=== PATIENT | male | born 1960 | race Caucasian/White ===

== ENCOUNTER 2019-11-22 15:32 | Inpatient (IN) | payer MEDICAID, MEDICARE ==
[~2019-11-22] VITALS: Ht 185.4 cm; Wt 80.5 kg
[~2019-11-22 15:32] MED LIST: CEFAZOLIN 1,000 MG ONE; CYCL-259 PO; DULO20CA45 PO; FOLI-17 PO; ONDANSETRON 2MG/ML, 2ML ONE; PHENYLEPHRINE 10 MG/ML ONE; PROPOFOL 10 MG/ML, 20ML ONE; ROCURONIUM 10 MG/ML,10ML ONE; SUCCINYLCHOLINE 20 MG/ML, 10ML ONE; THIA100T10 PO; TRAM50TA2 PO; TRAZ50TA66 PO; VASOPRESSIN 20 UNIT/ML, 1ML ONE
--- NOTE | 2019-11-22 15:58 | NUR ---
THIS IS A 59 YO MALE CARLOS REMSA FROM HOME WHERE PT WAS FOUND DOWN FOR UNK AMOUNT OF TIME. PT HAS LEFT PERIORIBTAL BRUSING/SWELLING. VARIOUS BRUISES ON BILAT ARMS IN DIFFERENT STATES OF HEALING. BRUSING ACROSS BACK AND RIGHT LATERAL SIDE. CAP REFILL APPROX 3-4 SECONDS ON TOES. PT HYPOTHERMIC UPON ARRIVAL. BEAR HUGGER INITIATED. PT ON CONT BP, CARDIAC AND SPO2 MONITORS. C-COLLAR IN PLACE FROM EMS D/T PT RESPONDING TO PAIN UPON PALP OF SPINE. PT AO X SELF AND SITUATION AND ANSWERING MOST QUESTIONS APPROPRIATELY. PUPILS 4MM, EQUAL AND REACTIVE, SLIGHTLY SLUGGISH. DRIED BLOOD NOTED IN HAIR ON RIGHT TOP OF SCALP. PT REPORTS HE FELL DOWN THE NEIGHBORS STAIRS. UNK EXACTLY WHEN. Addendum: 11/22/19 at 1604 by ALICIA THIS IS A 59 YO MALE CARLOS [place] FROM HOME WHERE PT WAS FOUND DOWN FOR UNK AMOUNT OF TIME. PT HAS LEFT PERIORIBTAL BRUSING/SWELLING. VARIOUS BRUISES ON BILAT ARMS IN DIFFERENT STATES OF HEALING. BRUSING ACROSS BACK AND RIGHT LATERAL SIDE. CAP REFILL APPROX 3-4 SECONDS ON TOES. PT HYPOTHERMIC UPON ARRIVAL. BEAR HUGGER INITIATED. PT ON CONT BP, CARDIAC AND SPO2 MONITORS. C-COLLAR IN PLACE FROM EMS D/T PT RESPONDING TO PAIN UPON PALP OF SPINE. PT AO X SELF AND SITUATION AND ANSWERING MOST QUESTIONS APPROPRIATELY. PUPILS 4MM, EQUAL AND REACTIVE, SLIGHTLY SLUGGISH. DRIED BLOOD NOTED IN HAIR ON RIGHT TOP OF SCALP. PT REPORTS HE FELL DOWN THE NEIGHBORS STAIRS. UNK EXACTLY WHEN.
[2019-11-22] MEDS ORDERED: SODIUM CHLORIDE 0.9% 1,000ML IVBOLUS ONE (16:00)
[2019-11-22] MEDS ORDERED: SODIUM CHLORIDE FLUSH 10ML SYR IVF ONE (16:00)
[2019-11-22] MEDS ORDERED: NEOSPORIN OINT. PKT 1 PACKET ONE ×2 (16:20)
[2019-11-22 16:27] LABS: ALANINE AMINOTRANSFERASE 647 U/L (12-78); ALBUMIN 3.7 g/dL (3.4-5.0); ANION GAP 25 mmol/L (5-15); CALCIUM 8.1 mg/dL (8.5-10.1); CHLORIDE 105 mmol/L (98-107); CREATININE 1.66 mg/dL (0.7-1.3)
[2019-11-22] MEDS ORDERED: ONDANSETRON 2MG/ML, 2ML ONE (16:33)
[2019-11-22 16:42] LABS: MD YES; MEAN CORPUSCULAR HEMOGLOBIN 23.9 pg (27.5-34.5); MEAN CORPUSCULAR HGB CONC 30.2 g/dL (33.2-36.2); MEAN PLATELET VOLUME 8.2 fL (7.4-10.4); PLATELET COUNT 71 x10^3/uL (130-400); RED BLOOD COUNT 4.87 x10^6/uL (4.38-5.82); RED CELL DISTRIBUTION WIDTH 19.9 % (9.4-14.8)
[2019-11-22 16:47] LABS: ANISOCYTOSIS 1+; BAND#(MANUAL) 0.35 x10^3/uL; BANDS%(MANUAL) 3 % (0-7); LYMPH#(MANUAL) 0.92 x10^3/uL (1-3.4); LYMPHS% (MANUAL) 8 % (22-44); MONOS#(MANUAL) 0.92 x10^3/uL (0.3-2.7); MONOS% (MANUAL) 8 % (2-9); SEG#(MANUAL) 9.32 x10^3/uL (1.8-6.8); SEGS% (MANUAL) 81 % (42-75)
--- NOTE | 2019-11-22 16:47 | NUR ---
PT TO CT SCAN VIA [facility] AT THIS TIME.
[2019-11-22 16:48] LABS: HYPOCHROMIA 1+; MICROCYTOSIS 1+; OVALOCYTES 1+
[2019-11-22 16:50] LABS: POLYCHROMASIA 1+
[2019-11-22 16:51] LABS: ALKALINE PHOSPHATASE 96 U/L (45-117); TARGET CELLS 1+
[2019-11-22 16:53] LABS: BILIRUBIN,TOTAL 3.7 mg/dL (0.2-1.0)
[2019-11-22 16:55] LABS: PAPPENHEIMER BODIES 1+
[2019-11-22] MEDS ORDERED: ONDANSETRON 2MG/ML, 2ML IVPush ONE (17:00)
[2019-11-22 17:02] LABS: <PLATELET ESTIMATE> DECREASED; <PLT MORPHOLOGY> NORMAL PLT MORPH
[2019-11-22 17:17] LABS: INTERNATIONAL NORMALIZED RATIO 1.09 (0.93-1.1); PROTHROMBIN TIME 11.6 Seconds (9.6-11.5)
[2019-11-22] MEDS ORDERED: OMNIPAQUE 350 MG/ML, 100ML BOTTLE ONE (17:34)
--- NOTE | 2019-11-22 17:35 | NUR ---
PT BACK FROM CT SCAN AT THIS TIME. PT MORE AWAKE AT THIS TIME. REPEATEDLY ASKING FOR WATER. PT ABLE TO STATE THE YEAR IS 2019 BUT THOUGHT IT WAS AUGUST. PT KNOWS HE LIVES IN [place]. STATES HIS AGE. PT THOUGHT HE WAS AT HOME. PUPILS EQUAL, 4MM AND REACTIVE BUT SLIGHTLY SLUGGISH. PT ON CONT BP, CARDIAC AND SPO2 MONITORS. LEELEE QUESADA AWARE OF HEAD CT READ. AWAITING ORDERS. C-COLLAR STILL IN PLACE.
--- NOTE | 2019-11-22 17:46 | NUR ---
TASK RN NOTE: 3RD IV START AFTER PT REPORTEDLY SELF-DC'ED IV FROM RT FOREARM.
--- NOTE | 2019-11-22 18:12 | NUR ---
LEELEE QUESADA OKAY'D PT TO HAVE A FEW SIPS OF WATER. NO CHANGE IN MENTATION, PT CONT TO BE AO X 2-3. PERRLA, WITH SLIGHTLY SLUGGISH PUPILS. PT ON CONT BP, CARDAIC AND SPO2 MONITORS. NST 110'S NOTED ON STATION CHIEF. WILL CONT TO MONITOR PT.
[2019-11-22] MEDS ORDERED: MAGNESIUM SULFATE 1 GM, THIAMINE 100 MG, FOLIC ACID 1 MG, MVI ADULT 10 ML in SODIUM CHL... IV ONE (18:30)
[2019-11-22] MEDS ORDERED: OMNIPAQUE 350 MG/ML, 75ML BOTTLE ONE (18:46)
--- NOTE | 2019-11-22 18:50 | NUR ---
LATE ENTRY: PT WAS TAKEN TO CT AGAIN STAT PER LEELEE QUESADA FOR HEAD CTA PER REQUEST OF NEUROLOGIST. INTERNAL MED MD MALDONADO AT BEDSIDE FOR EVAL AT THIS TIME. PT REMAINS PARTIALLY CONFUSED, AO SELF AND KNOWS YEAR IS 2019 AND HE IS IN [place]. PT CONT TO THINK HE IS AT HOME REQUESTING A CIGAR, SOMETHING FROM [place] AND LOOKING FOR HIS CATS. STRONG ETOH ODOR NOTED. PT ON CONT BP, CARDIAC AND SPO2 MONITORS. PT NST 110'S ON CARDICA MONITOR. WILL CONT TO MONITOR PT. Addendum: 11/22/19 at 1856 by ALICIA LATE ENTRY: PT WAS TAKEN TO CT AGAIN STAT PER LEELEE QUESADA FOR HEAD CTA PER REQUEST OF NEUROLOGIST. INTERNAL MED MD MALDONADO AT BEDSIDE FOR EVAL AT THIS TIME. PT REMAINS PARTIALLY CONFUSED, AO SELF AND KNOWS YEAR IS 2019 AND HE IS IN [place]. PT CONT TO THINK HE IS AT HOME REQUESTING A CIGAR, SOMETHING FROM [place] AND LOOKING FOR HIS CATS. HOWEVER, WHEN DR. MALDONADO ASKED, PT STATED "I'M IN THE ER. AT A HOSPITAL." STRONG ETOH ODOR NOTED. PT ON CONT BP, CARDIAC AND SPO2 MONITORS. PT NST 110'S ON CARDICA MONITOR. WILL CONT TO MONITOR PT.
--- NOTE | 2019-11-22 19:03 | NUR ---
NEURO MD OLIVA AT BEDSIDE FOR EVAL. LEELEE QUESADA AT BEDSIDE FOR RECHECK. REPORT TO RN PEDRITO WHO ASSUMED CARE OF PT.
--- NOTE | 2019-11-22 19:10 | NUR ---
RAPID COVID SPECIMEN OBTAINED IN CORRECT FORM. WALKED TO LAB REPORT FROM ALEXANDER AMARAL
[2019-11-22] MEDS ORDERED: SODIUM CHLORIDE 0.9% 1,000 ML IV SCH (19:12)
[2019-11-22] MEDS ORDERED: BUPIVACAINE/EPI 0.5% 1:200K ONE (19:14)
[2019-11-22] MEDS ORDERED: BACITRACIN 50,000 UNIT ONE (19:14)
[2019-11-22] MEDS ORDERED: THROMBIN 5,000 UNIT VIAL TP ONE (19:14)
--- NOTE | 2019-11-22 19:24 | NUR ---
REPORT TO CRISTIN BOONE IN OR.
[2019-11-22] MEDS ORDERED: ACETAMINOPHEN 325 MG TABLET PO PRN (19:30)
[2019-11-22] MEDS ORDERED: FOLIC ACID 1 MG TABLET PO ONE (19:30)
[2019-11-22] MEDS ORDERED: hydrALAzine 20 MG/ML, 1ML IVPush PRN (19:30)
[2019-11-22] MEDS ORDERED: LORazepam 2 MG/ML, 1ML IV PRN ×5 (19:30)
[2019-11-22] MEDS ORDERED: ONDANSETRON 2MG/ML, 2ML IVPush PRN (19:30)
[2019-11-22] MEDS ORDERED: BISACODYL 10 MG SUPP PR PRN (19:30)
[2019-11-22] MEDS ORDERED: HYDROcodone/APAP 5/325 TABLET PO PRN (19:30)
[2019-11-22] MEDS ORDERED: LORazepam 1MG TABLET PO PRN ×4 (19:30)
[2019-11-22] MEDS ORDERED: morphine SULFATE 10 MG/ML, 1ML IVPush PRN ×2 (19:30→21:00)
--- NOTE | 2019-11-22 19:32 | NUR ---
DOSE OF PLATLETS REQUESTED FROM BLOOD BANK BLOOD TRANSFUSION CONSENT SIGNED BY ER MD AND [employer] WAREHOUSE DEVELOPER PATIENT TOO INTOXICATED TO SIGN)
--- NOTE | 2019-11-22 19:39 | NUR ---
TO OR WITH DOSE OF PLATLETS WHICH HAS NOT BEEN CONNECTED TO [facility] YET. SENT TO OR FOR THEM TO TRANSFUSE
[2019-11-22] MEDS ORDERED: FENTANYL PF 100 MCG/2ML ONE (19:55)
[2019-11-22] MEDS ORDERED: LORazepam 2 MG/ML, 1ML IVPush PRN (21:00)
[2019-11-22] MEDS ORDERED: MEPERIDINE/PF 25MG/0.5ML IVPush PRN (21:00)
[2019-11-22] MEDS ORDERED: FENTANYL PF 100 MCG/2ML IV PRN (21:00)
[2019-11-22] MEDS ORDERED: PROMETHAZINE 25 MG/ML, 1ML IVPush PRN (21:00)
[2019-11-22] MEDS ORDERED: FAMOTIDINE 20 MG/2 ML IVPush SCH (21:00)
[2019-11-22] MEDS ORDERED: DIAZEPAM 5 MG/ML, 2ML ONE (22:21)
[2019-11-22] MEDS ORDERED: LABETALOL 5MG/ML, 20ML ONE (22:28)
[2019-11-22] MEDS ORDERED: LEVETIRACETAM 1,000 MG in SODIUM CHLORIDE 0.9% 100 ML IV ONE (22:30)
[2019-11-22] MEDS ORDERED: PHENYLEPHRINE 10 MG/ML ONE (22:46)
[2019-11-22] MEDS ORDERED: LABETALOL 5MG/ML, 20ML IV STA (23:13)
[2019-11-22] MEDS ORDERED: PROPOFOL 100 ML IV ONE (23:24)
[2019-11-22] MEDS ORDERED: DIAZEPAM 5 MG/ML, 2ML IV ONE (23:30)
[2019-11-22] MEDS ORDERED: PROPOFOL 100 ML IV PRN (23:31)
[2019-11-23] MEDS ORDERED: LIDOCAINE-MPF 1%, 2ML ENDO PRN
[2019-11-23] MEDS ORDERED: PHARMACY MAY ADJ FOR RENAL FX MC SCH
[2019-11-23] MEDS ORDERED: LORazepam 2 MG/ML, 1ML IVPush PRN ×2
[2019-11-23] MEDS ORDERED: NS + 20MEQ KCL 1,000 ML IV SCH (00:30)
[2019-11-23] MEDS ORDERED: morphine SULFATE 10 MG/ML, 1ML IV PRN (00:30)
[2019-11-23] MEDS ORDERED: ONDANSETRON 2MG/ML, 2ML IV PRN (00:30)
[2019-11-23] MEDS ORDERED: ACETAMINOPHEN 650 MG SUPP PR PRN (00:30)
[2019-11-23] MEDS ORDERED: ACETAMINOPHEN 325 MG TABLET PO PRN (00:30)
[2019-11-23] MEDS ORDERED: OXYcodone/APAP 5/325MG TABLET PO PRN (00:30)
[2019-11-23] MEDS: CEFAZOLIN PMX 1GM/50ML 50 ML IVPB SCH ×2 (00:55→10:29)
[2019-11-23 02:14] LABS: MICROSCOPIC INDICATED
[2019-11-23 02:24] LABS: AMPHETAMINE SCREEN, URINE Negative (Negative); BARBITURATE SCREEN, URINE Negative (Negative); BENZODIAZEPINE SCREEN, URINE Negative (Negative); CANNABINOID SCREEN, URINE Negative (Negative); COCAINE SCREEN, URINE Negative (Negative); METHADONE SCREEN, URINE Negative (Negative); OPIATE SCREEN, URINE Negative (Negative)
[2019-11-23 02:31] LABS: MEAN CORPUSCULAR HEMOGLOBIN 25.4 pg (27.5-34.5); MEAN CORPUSCULAR HGB CONC 31.6 g/dL (33.2-36.2); PLATELET COUNT 113 x10^3/uL (130-400); RED BLOOD COUNT 3.84 x10^6/uL (4.38-5.82); RED CELL DISTRIBUTION WIDTH 19.3 % (9.4-14.8)
[2019-11-23 02:32] LABS: ANION GAP 15 mmol/L (5-15); CHLORIDE 112 mmol/L (98-107); CREATININE 1.28 mg/dL (0.7-1.3); INTERNATIONAL NORMALIZED RATIO 1.06 (0.93-1.1); PROTHROMBIN TIME 11.2 Seconds (9.6-11.5)
[2019-11-23 02:46] LABS: ALANINE AMINOTRANSFERASE 1045 U/L (12-78); ALKALINE PHOSPHATASE 76 U/L (45-117); BILIRUBIN,TOTAL 2.4 mg/dL (0.2-1.0)
[2019-11-23 02:48] LABS: MD YES
[2019-11-23 02:51] LABS: ANISOCYTOSIS 1+; BAND#(MANUAL) 0.26 x10^3/uL; BANDS%(MANUAL) 3 % (0-7); BASOS#(MANUAL) 0.09 x10^3/uL (0-0.1); BASOS% (MANUAL) 1 % (0-1); LYMPH#(MANUAL) 0.09 x10^3/uL (1-3.4); LYMPHS% (MANUAL) 1 % (22-44); MONOS#(MANUAL) 0.09 x10^3/uL (0.3-2.7); MONOS% (MANUAL) 1 % (2-9); SEG#(MANUAL) 8.18 x10^3/uL (1.8-6.8); SEGS% (MANUAL) 94 % (42-75)
[2019-11-23 02:52] LABS: OVALOCYTES 1+; POLYCHROMASIA 1+; TARGET CELLS 1+
[2019-11-23 02:53] LABS: CRENATED 1+
[2019-11-23 02:56] LABS: <PLATELET ESTIMATE> DECREASED; <PLT MORPHOLOGY> NORMAL PLT MORPH
[2019-11-23 03:03] VITALS: BP 157/101
[2019-11-23 04:00] VITALS: BP 159/80
[2019-11-23] MEDS: FENTANYL PF 100 MCG/2ML IVPush PRN ×5 (04:15→13:26)
[2019-11-23 05:22] LABS: MEAN CORPUSCULAR HEMOGLOBIN 25.4 pg (27.5-34.5); MEAN CORPUSCULAR HGB CONC 31.6 g/dL (33.2-36.2); MEAN PLATELET VOLUME 8.1 fL (7.4-10.4); PLATELET COUNT 105 x10^3/uL (130-400); RED BLOOD COUNT 3.84 x10^6/uL (4.38-5.82); RED CELL DISTRIBUTION WIDTH 19.5 % (9.4-14.8)
[2019-11-23 05:23] LABS: PROTHROMBIN TIME 10.6 Seconds (9.6-11.5)
[2019-11-23 05:26] LABS: ANION GAP 12 mmol/L (5-15); CALCIUM 7.4 mg/dL (8.5-10.1); CHLORIDE 114 mmol/L (98-107)
[2019-11-23 05:44] LABS: % IRON SATURATION 64 % (20-55); CREATININE 1.11 mg/dL (0.7-1.3); IRON LEVEL 142 mcg/dL (65-175); TOTAL IRON BINDING CAPACITY 221 mcg/dL (250-450); TRANSFERRIN 173 mg/dL (200-360)
[2019-11-23 06:07] LABS: MD YES
[2019-11-23 06:09] LABS: ANISOCYTOSIS 1+; BAND#(MANUAL) 0.23 x10^3/uL; BANDS%(MANUAL) 3 % (0-7); HYPOCHROMIA 1+; LYMPH#(MANUAL) 0.16 x10^3/uL (1-3.4); LYMPHS% (MANUAL) 2 % (22-44); MICROCYTOSIS 1+; MONOS#(MANUAL) 0.08 x10^3/uL (0.3-2.7); MONOS% (MANUAL) 1 % (2-9); OVALOCYTES 1+; SEG#(MANUAL) 7.33 x10^3/uL (1.8-6.8); SEGS% (MANUAL) 94 % (42-75); TARGET CELLS 1+
[2019-11-23 06:10] LABS: <PLATELET ESTIMATE> DECREASED; <PLT MORPHOLOGY> NORMAL PLT MORPH; POLYCHROMASIA 1+
[2019-11-23] MEDS ORDERED: DIAZEPAM 5 MG/ML, 2ML IV SCH (06:30)
[2019-11-23] MEDS ORDERED: INSULIN REGULAR 100 UNITS/ML, 3ML VIAL SQ-INSULIN SCH (07:00)
[2019-11-23] MEDS: POTASSIUM CHLORIDE 20 MEQ, MAGNESIUM SULFATE 1 GM, THIAMINE 200 MG, FOLIC ACID 1 MG, MV... IV SCH (08:26)
[2019-11-23] MEDS ORDERED: MULTIVITAMINS/MINERALS TABLET PO SCH (09:00)
[2019-11-23] MEDS: PANTOPRAZOLE 40 MG IV IVPush SCH (10:33)
[2019-11-23] MEDS: MIDAZOLAM HCL 50 MG in SODIUM CHLORIDE 0.9% 40 ML IV PRN ×3 (10:41→19:25)
[2019-11-23] MEDS ORDERED: ENALAPRILAT 1.25 MG/ML, 2ML IVPush PRN (11:30)
[2019-11-23] MEDS ORDERED: LABETALOL 5MG/ML, 20ML IVPush PRN (11:30)
[2019-11-23] MEDS: INSULIN REGULAR 100 UNITS/ML, 3ML VIAL SQ-INSULIN SCH ×3 (12:53→22:39)
[2019-11-23] MEDS: hydrALAzine 20 MG/ML, 1ML IVPush PRN (13:16)
[2019-11-23] MEDS: LEVETIRACETAM 1,000 MG in SODIUM CHLORIDE 0.9% 100 ML IV SCH (13:21)
[2019-11-23] MEDS: FENTANYL PF 1,000 MCG in SODIUM CHLORIDE 0.9% 80 ML IV PRN (16:08)
[2019-11-23] MEDS: LABETALOL 5MG/ML, 20ML IV PRN ×2 (22:35→23:45)
[2019-11-24] MEDS: LEVETIRACETAM 1,000 MG in SODIUM CHLORIDE 0.9% 100 ML IV SCH ×2 (00:34→14:10)
[2019-11-24] MEDS: MIDAZOLAM HCL 50 MG in SODIUM CHLORIDE 0.9% 40 ML IV PRN ×3 (02:04→16:36)
[2019-11-24 03:54] LABS: MEAN CORPUSCULAR HEMOGLOBIN 25.9 pg (27.5-34.5); MEAN CORPUSCULAR HGB CONC 32.3 g/dL (33.2-36.2); RED BLOOD COUNT 3.32 x10^6/uL (4.38-5.82); RED CELL DISTRIBUTION WIDTH 19.5 % (9.4-14.8)
[2019-11-24 03:58] LABS: ANION GAP 4 mmol/L (5-15); CALCIUM 7.9 mg/dL (8.5-10.1); CHLORIDE 116 mmol/L (98-107); CREATININE 0.57 mg/dL (0.7-1.3)
[2019-11-24 04:02] LABS: MD YES
[2019-11-24 04:06] LABS: MEAN PLATELET VOLUME 8.9 fL (7.4-10.4); PLATELET COUNT 89 x10^3/uL (130-400)
[2019-11-24 04:09] LABS: ANISOCYTOSIS 1+; BAND#(MANUAL) 0.08 x10^3/uL; BANDS%(MANUAL) 1 % (0-7); HYPOCHROMIA 1+; LYMPHS% (MANUAL) 12 % (22-44); MICROCYTOSIS 1+; MONOS% (MANUAL) 4 % (2-9); OVALOCYTES 1+; POLYCHROMASIA 1+; SEG#(MANUAL) 6.23 x10^3/uL (1.8-6.8); SEGS% (MANUAL) 83 % (42-75)
[2019-11-24 04:11] LABS: <PLATELET ESTIMATE> DECREASED; <PLT MORPHOLOGY> NORMAL PLT MORPH; TARGET CELLS 1+
[2019-11-24 04:23] VITALS: BP 155/74
[2019-11-24] MEDS: INSULIN REGULAR 100 UNITS/ML, 3ML VIAL SQ-INSULIN SCH ×4 (05:00→21:08)
[2019-11-24] MEDS: LABETALOL 5MG/ML, 20ML IV PRN (05:16)
[2019-11-24] MEDS: POTASSIUM CHLORIDE 20 MEQ, MAGNESIUM SULFATE 1 GM, THIAMINE 200 MG, FOLIC ACID 1 MG, MV... IV SCH (05:49)
[2019-11-24] MEDS ORDERED: THIAMINE 100 MG in DEXTROSE 5% 50 ML IVPB SCH (09:00)
[2019-11-24] MEDS: FENTANYL PF 1,000 MCG in SODIUM CHLORIDE 0.9% 80 ML IV PRN (09:04)
[2019-11-24] MEDS: CARVEDILOL 6.25 MG TABLET PO SCH ×2 (09:10→18:24)
[2019-11-24] MEDS: PANTOPRAZOLE 40 MG IV IVPush SCH (09:10)
[2019-11-24] MEDS: LISINOPRIL 10 MG TABLET PO SCH ×2 (09:11→21:09)
[2019-11-25] MEDS: LEVETIRACETAM 1,000 MG in SODIUM CHLORIDE 0.9% 100 ML IV SCH ×2 (01:42→13:10)
[2019-11-25] MEDS: MIDAZOLAM HCL 50 MG in SODIUM CHLORIDE 0.9% 40 ML IV PRN ×3 (01:49→17:10)
[2019-11-25 04:30] VITALS: BP 119/54
[2019-11-25] MEDS: INSULIN REGULAR 100 UNITS/ML, 3ML VIAL SQ-INSULIN SCH (04:30)
[2019-11-25 04:39] LABS: MEAN CORPUSCULAR HEMOGLOBIN 26.3 pg (27.5-34.5); MEAN CORPUSCULAR HGB CONC 32.7 g/dL (33.2-36.2); MEAN PLATELET VOLUME 9.2 fL (7.4-10.4); PLATELET COUNT 97 x10^3/uL (130-400); RED BLOOD COUNT 2.89 x10^6/uL (4.38-5.82); RED CELL DISTRIBUTION WIDTH 19.6 % (9.4-14.8)
[2019-11-25 04:43] LABS: ANION GAP 4 mmol/L (5-15); CALCIUM 8.4 mg/dL (8.5-10.1); CHLORIDE 115 mmol/L (98-107); TRIGLYCERIDES 104 mg/dL (50-200)
[2019-11-25 04:59] LABS: CREATINE KINASE, TOTAL 2846 U/L (39-308)
[2019-11-25 05:10] LABS: MD YES
[2019-11-25 05:14] LABS: BAND#(MANUAL) 0.13 x10^3/uL; BANDS%(MANUAL) 2 % (0-7); EOS#(MANUAL) 0.06 x10^3/uL (0.0-0.4); EOS% (MANUAL) 1 % (1-7); LYMPH#(MANUAL) 0.95 x10^3/uL (1-3.4); LYMPHS% (MANUAL) 15 % (22-44); MONOS#(MANUAL) 0.13 x10^3/uL (0.3-2.7); MONOS% (MANUAL) 2 % (2-9); SEG#(MANUAL) 5.04 x10^3/uL (1.8-6.8); SEGS% (MANUAL) 80 % (42-75)
[2019-11-25 05:15] LABS: <PLATELET ESTIMATE> DECREASED; ANISOCYTOSIS 1+; BASOPHILLIC STIPPLING 1+; HYPOCHROMIA 1+; MICROCYTOSIS 1+; OVALOCYTES 1+; TARGET CELLS 1+
[2019-11-25 05:16] LABS: LARGE PLATELETS 1+
[2019-11-25] MEDS: POTASSIUM CHLORIDE 20 MEQ, MAGNESIUM SULFATE 1 GM, THIAMINE 200 MG, FOLIC ACID 1 MG, MV... IV SCH (05:40)
[2019-11-25] MEDS: CARVEDILOL 6.25 MG TABLET PO SCH ×2 (05:40→17:11)
[2019-11-25] MEDS: FENTANYL PF 1,000 MCG in SODIUM CHLORIDE 0.9% 80 ML IV PRN (07:25)
[2019-11-25] MEDS: LISINOPRIL 10 MG TABLET PO SCH ×2 (07:39→20:41)
[2019-11-25] MEDS: PANTOPRAZOLE 40 MG IV IVPush SCH (10:26)
[2019-11-25] MEDS ORDERED: SODIUM PHOSPHATE 40 MMOL in SODIUM CHLORIDE 0.9% 500 ML IV ONE (10:30)
[2019-11-25] MEDS ORDERED: SODIUM CHLORIDE 0.9%, 500ML IVBOLUS ONE (10:30)
[2019-11-26] MEDS: MIDAZOLAM HCL 50 MG in SODIUM CHLORIDE 0.9% 40 ML IV PRN (00:10)
[2019-11-26] MEDS: LEVETIRACETAM 1,000 MG in SODIUM CHLORIDE 0.9% 100 ML IV SCH ×2 (01:35→13:40)
[2019-11-26 04:02] VITALS: BP 110/68
[2019-11-26 04:34] LABS: MEAN CORPUSCULAR HEMOGLOBIN 26.1 pg (27.5-34.5); MEAN CORPUSCULAR HGB CONC 31.6 g/dL (33.2-36.2); MEAN PLATELET VOLUME 8.3 fL (7.4-10.4); PLATELET COUNT 110 x10^3/uL (130-400); RED CELL DISTRIBUTION WIDTH 20.1 % (9.4-14.8)
[2019-11-26 04:41] LABS: ANION GAP 1 mmol/L (5-15); CALCIUM 8.8 mg/dL (8.5-10.1); CHLORIDE 117 mmol/L (98-107); CREATININE 0.49 mg/dL (0.7-1.3)
[2019-11-26 04:51] LABS: MD YES
[2019-11-26] MEDS: FENTANYL PF 1,000 MCG in SODIUM CHLORIDE 0.9% 80 ML IV PRN (04:51)
[2019-11-26 04:53] LABS: ANISOCYTOSIS 1+; BASOPHILLIC STIPPLING 1+; EOS#(MANUAL) 0.14 x10^3/uL (0.0-0.4); EOS% (MANUAL) 2 % (1-7); HYPOCHROMIA 1+; LYMPH#(MANUAL) 0.75 x10^3/uL (1-3.4); LYMPHS% (MANUAL) 11 % (22-44); MICROCYTOSIS 1+; MONOS#(MANUAL) 0.34 x10^3/uL (0.3-2.7); MONOS% (MANUAL) 5 % (2-9); OVALOCYTES 1+; SEG#(MANUAL) 5.58 x10^3/uL (1.8-6.8); SEGS% (MANUAL) 82 % (42-75); TARGET CELLS 1+
[2019-11-26 04:54] LABS: <PLATELET ESTIMATE> DECREASED; <PLT MORPHOLOGY> NORMAL PLT MORPH
[2019-11-26] MEDS: POTASSIUM CHLORIDE 20 MEQ, MAGNESIUM SULFATE 1 GM, THIAMINE 200 MG, FOLIC ACID 1 MG, MV... IV SCH (05:51)
[2019-11-26] MEDS: CARVEDILOL 6.25 MG TABLET PO SCH ×2 (05:51→18:25)
[2019-11-26] MEDS ORDERED: MAGNESIUM SULFATE PMX 2GM/50ML 50 ML IV ONE (07:00)
[2019-11-26] MEDS ORDERED: DOCUSATE 50 MG/5 ML, 10ML UDC PO PRN (08:30)
[2019-11-26] MEDS ORDERED: GLYCERIN ADULT SUPP PR PRN (08:30)
[2019-11-26] MEDS: LISINOPRIL 10 MG TABLET PO SCH ×2 (08:43→21:35)
[2019-11-26] MEDS: PANTOPRAZOLE 40 MG IV IVPush SCH (08:43)
[2019-11-26] MEDS: POLYETHYLENE GLYCOL 17 GM PACKET PO SCH (08:43)
[2019-11-27] MEDS: LEVETIRACETAM 1,000 MG in SODIUM CHLORIDE 0.9% 100 ML IV SCH ×2 (01:45→15:55)
[2019-11-27 04:19] VITALS: BP 142/78
[2019-11-27 04:52] LABS: MEAN CORPUSCULAR HEMOGLOBIN 26.1 pg (27.5-34.5); MEAN CORPUSCULAR HGB CONC 31.9 g/dL (33.2-36.2); MEAN PLATELET VOLUME 7.8 fL (7.4-10.4); PLATELET COUNT 150 x10^3/uL (130-400); RED BLOOD COUNT 2.71 x10^6/uL (4.38-5.82); RED CELL DISTRIBUTION WIDTH 20.8 % (9.4-14.8)
[2019-11-27 04:53] LABS: ANION GAP 0 mmol/L (5-15); CALCIUM 8.9 mg/dL (8.5-10.1); CHLORIDE 113 mmol/L (98-107); CREATININE 0.45 mg/dL (0.7-1.3)
[2019-11-27] MEDS: CARVEDILOL 6.25 MG TABLET PO SCH ×2 (05:48→18:21)
[2019-11-27 05:54] LABS: MD YES
[2019-11-27 05:57] LABS: BAND#(MANUAL) 0.14 x10^3/uL; BANDS%(MANUAL) 2 % (0-7); BASOS#(MANUAL) 0.07 x10^3/uL (0-0.1); BASOS% (MANUAL) 1 % (0-1); LYMPH#(MANUAL) 1.28 x10^3/uL (1-3.4); LYMPHS% (MANUAL) 18 % (22-44); MONOS#(MANUAL) 0.85 x10^3/uL (0.3-2.7); MONOS% (MANUAL) 12 % (2-9); SEG#(MANUAL) 4.76 x10^3/uL (1.8-6.8); SEGS% (MANUAL) 67 % (42-75)
[2019-11-27 05:58] LABS: <PLATELET ESTIMATE> ADEQUATE; <PLT MORPHOLOGY> NORMAL PLT MORPH; ANISOCYTOSIS 1+; HYPOCHROMIA 1+; MICROCYTOSIS 1+; OVALOCYTES 1+; TARGET CELLS 1+
[2019-11-27] MEDS: POTASSIUM CHLORIDE 20 MEQ, MAGNESIUM SULFATE 1 GM, THIAMINE 200 MG, FOLIC ACID 1 MG, MV... IV SCH (06:35)
[2019-11-27] MEDS ORDERED: LACTULOSE 20 GM/30 ML UDC ONE (08:43)
[2019-11-27] MEDS: LINEZOLID PMX 600MG/300ML 300 ML IV SCH ×2 (08:45→21:04)
[2019-11-27] MEDS: POLYETHYLENE GLYCOL 17 GM PACKET PO SCH (08:45)
[2019-11-27] MEDS: LISINOPRIL 10 MG TABLET PO SCH ×2 (08:45→21:04)
[2019-11-27] MEDS: PANTOPRAZOLE 40 MG IV IVPush SCH (08:45)
[2019-11-27] MEDS ORDERED: BISACODYL 5 MG EC TABLET PO PRN (09:30)
[2019-11-27] MEDS ORDERED: PROPOFOL 100 ML IV ONE (11:13)
[2019-11-27] MEDS: PROPOFOL 100 ML IV PRN ×2 (11:28→18:48)
[2019-11-27] MEDS: LACTULOSE 20 GM/30 ML UDC PO PRN (11:28)
[2019-11-27] MEDS: hydrALAzine 20 MG/ML, 1ML IVPush PRN (13:19)
[2019-11-27] MEDS: BISACODYL 10 MG SUPP PR PRN (15:17)
[2019-11-28] MEDS: PROPOFOL 100 ML IV PRN ×2 (03:33→15:51)
[2019-11-28] MEDS: LEVETIRACETAM 1,000 MG in SODIUM CHLORIDE 0.9% 100 ML IV SCH ×2 (03:39→12:58)
[2019-11-28 03:48] LABS: ANION GAP 4 mmol/L (5-15); CALCIUM 8.6 mg/dL (8.5-10.1); CHLORIDE 107 mmol/L (98-107); CREATININE 0.52 mg/dL (0.7-1.3); TRIGLYCERIDES 92 mg/dL (50-200)
[2019-11-28 04:00] VITALS: BP 147/76
[2019-11-28 04:16] LABS: MEAN CORPUSCULAR HEMOGLOBIN 25.8 pg (27.5-34.5); MEAN CORPUSCULAR HGB CONC 31.7 g/dL (33.2-36.2); MEAN PLATELET VOLUME 7.6 fL (7.4-10.4); PLATELET COUNT 243 x10^3/uL (130-400); RED BLOOD COUNT 2.83 x10^6/uL (4.38-5.82)
[2019-11-28 04:42] LABS: MD YES
[2019-11-28 04:47] LABS: ANISOCYTOSIS 1+; BAND#(MANUAL) 0.11 x10^3/uL; BANDS%(MANUAL) 2 % (0-7); EOS#(MANUAL) 0.06 x10^3/uL (0.0-0.4); EOS% (MANUAL) 1 % (1-7); LYMPH#(MANUAL) 1.16 x10^3/uL (1-3.4); LYMPHS% (MANUAL) 21 % (22-44); MICROCYTOSIS 1+; MONOS#(MANUAL) 0.88 x10^3/uL (0.3-2.7); MONOS% (MANUAL) 16 % (2-9); SEGS% (MANUAL) 60 % (42-75)
[2019-11-28 04:48] LABS: <PLATELET ESTIMATE> ADEQUATE; <PLT MORPHOLOGY> NORMAL PLT MORPH; HYPOCHROMIA 1+; POLYCHROMASIA 2+
[2019-11-28] MEDS: CARVEDILOL 6.25 MG TABLET PO SCH ×2 (05:55→18:23)
[2019-11-28] MEDS: LINEZOLID PMX 600MG/300ML 300 ML IV SCH ×2 (08:55→20:32)
[2019-11-28] MEDS: PANTOPRAZOLE 40 MG IV IVPush SCH (09:20)
[2019-11-28] MEDS: LISINOPRIL 10 MG TABLET PO SCH ×2 (09:21→20:34)
[2019-11-28] MEDS: POLYETHYLENE GLYCOL 17 GM PACKET PO SCH (09:21)
[2019-11-28] MEDS: hydrALAzine 20 MG/ML, 1ML IVPush PRN (14:54)
[2019-11-28] MEDS: FENTANYL PF 100 MCG/2ML IVPush PRN (15:31)
[2019-11-29] MEDS: PROPOFOL 100 ML IV PRN ×2 (02:10→23:11)
[2019-11-29] MEDS: LEVETIRACETAM 1,000 MG in SODIUM CHLORIDE 0.9% 100 ML IV SCH ×2 (02:10→14:55)
[2019-11-29 04:51] LABS: MEAN CORPUSCULAR HEMOGLOBIN 25.5 pg (27.5-34.5); MEAN CORPUSCULAR HGB CONC 31.4 g/dL (33.2-36.2); MEAN PLATELET VOLUME 7.8 fL (7.4-10.4); PLATELET COUNT 314 x10^3/uL (130-400); RED BLOOD COUNT 2.88 x10^6/uL (4.38-5.82); RED CELL DISTRIBUTION WIDTH 20.7 % (9.4-14.8)
[2019-11-29 04:56] VITALS: BP 146/75
[2019-11-29 05:04] LABS: ANION GAP 6 mmol/L (5-15); CALCIUM 8.3 mg/dL (8.5-10.1); CHLORIDE 103 mmol/L (98-107); CREATININE 0.59 mg/dL (0.7-1.3)
[2019-11-29 05:54] LABS: MD YES
[2019-11-29 05:55] LABS: BAND#(MANUAL) 0.05 x10^3/uL; BANDS%(MANUAL) 1 % (0-7); LYMPH#(MANUAL) 0.85 x10^3/uL (1-3.4); LYMPHS% (MANUAL) 17 % (22-44); MONOS#(MANUAL) 1.05 x10^3/uL (0.3-2.7); MONOS% (MANUAL) 21 % (2-9); SEG#(MANUAL) 3.05 x10^3/uL (1.8-6.8); SEGS% (MANUAL) 61 % (42-75)
[2019-11-29 05:57] LABS: <PLATELET ESTIMATE> ADEQUATE; <PLT MORPHOLOGY> NORMAL PLT MORPH; ANISOCYTOSIS 1+; HYPOCHROMIA 1+; MICROCYTOSIS 1+; OVALOCYTES 1+; POLYCHROMASIA 1+
[2019-11-29] MEDS: CARVEDILOL 6.25 MG TABLET PO SCH ×2 (06:01→17:41)
[2019-11-29] MEDS: POTASSIUM CHLORIDE 20 MEQ TAB.ER.PRT PO SCH ×2 (07:44→17:41)
[2019-11-29] MEDS: LISINOPRIL 10 MG TABLET PO SCH ×2 (07:44→20:04)
[2019-11-29] MEDS: LINEZOLID PMX 600MG/300ML 300 ML IV SCH ×2 (07:45→19:59)
[2019-11-29] MEDS: POLYETHYLENE GLYCOL 17 GM PACKET PO SCH (07:45)
[2019-11-29] MEDS: PANTOPRAZOLE 40 MG IV IVPush SCH (09:48)
[2019-11-29 14:43] LABS: ALANINE AMINOTRANSFERASE 132 U/L (12-78)
[2019-11-29] MEDS: ACETAMINOPHEN 325 MG TABLET PO PRN ×2 (16:00→22:18)
[2019-11-30] MEDS: LEVETIRACETAM 1,000 MG in SODIUM CHLORIDE 0.9% 100 ML IV SCH ×2 (01:13→14:18)
[2019-11-30 04:00] VITALS: BP 116/66
[2019-11-30 04:33] LABS: ANION GAP 5 mmol/L (5-15); CALCIUM 8.6 mg/dL (8.5-10.1); CHLORIDE 105 mmol/L (98-107)
[2019-11-30 04:39] LABS: MEAN CORPUSCULAR HEMOGLOBIN 24.7 pg (27.5-34.5); MEAN CORPUSCULAR HGB CONC 30.5 g/dL (33.2-36.2); MEAN PLATELET VOLUME 8.5 fL (7.4-10.4); PLATELET COUNT 370 x10^3/uL (130-400); RED BLOOD COUNT 2.76 x10^6/uL (4.38-5.82); RED CELL DISTRIBUTION WIDTH 20.8 % (9.4-14.8)
[2019-11-30 05:25] LABS: MD YES
[2019-11-30 05:30] LABS: ANISOCYTOSIS 1+; BAND#(MANUAL) 0.12 x10^3/uL; BANDS%(MANUAL) 1 % (0-7); EOS#(MANUAL) 0.12 x10^3/uL (0.0-0.4); EOS% (MANUAL) 1 % (1-7); LYMPH#(MANUAL) 1.69 x10^3/uL (1-3.4); LYMPHS% (MANUAL) 14 % (22-44); METAMYELOCYTES# (MANUAL) 0.12 x10^3/uL (0-0); METAMYELOCYTES% (MANUAL) 1 % (0-1); MICROCYTOSIS 1+; MONOS#(MANUAL) 1.94 x10^3/uL (0.3-2.7); MONOS% (MANUAL) 16 % (2-9); MYELOCYTES# (MANUAL) 0.12 x10^3/uL (0-0); MYELOCYTES% (MANUAL) 1 % (0-0); SEG#(MANUAL) 7.99 x10^3/uL (1.8-6.8); SEGS% (MANUAL) 66 % (42-75)
[2019-11-30 05:31] LABS: <PLATELET ESTIMATE> ADEQUATE; <PLT MORPHOLOGY> NORMAL PLT MORPH; HYPOCHROMIA 1+; OVALOCYTES 1+; POLYCHROMASIA 1+
[2019-11-30] MEDS: CARVEDILOL 6.25 MG TABLET PO SCH ×2 (05:48→17:30)
[2019-11-30] MEDS: PROPOFOL 100 ML IV PRN ×4 (05:49→19:31)
[2019-11-30] MEDS ORDERED: OPIUM/BELLADONNA SUPP.RECT 16.2-30 MG PR PRN (10:30)
[2019-11-30] MEDS ORDERED: OPIUM/BELLADONNA SUPP.RECT 16.2-30 MG ONE (10:32)
[2019-11-30] MEDS: POLYETHYLENE GLYCOL 17 GM PACKET PO SCH (10:36)
[2019-11-30] MEDS: LINEZOLID PMX 600MG/300ML 300 ML IV SCH ×2 (10:37→21:06)
[2019-11-30] MEDS: LISINOPRIL 10 MG TABLET PO SCH ×2 (10:37→21:05)
[2019-11-30] MEDS: PANTOPRAZOLE 40 MG IV IVPush SCH (10:37)
[2019-11-30 10:46] VITALS: BP 145/78
[2019-11-30 11:00] VITALS: BP 150/81
[2019-11-30 11:15] VITALS: BP 150/82
[2019-11-30 11:23] LABS: MICROSCOPIC INDICATED
[2019-11-30 12:15] VITALS: BP 158/90
[2019-11-30 13:15] VITALS: BP 162/97
[2019-11-30] MEDS: hydrALAzine 20 MG/ML, 1ML IVPush PRN (13:48)
[2019-11-30] MEDS: PIPERACILLIN/TAZO/PMX 3.375GM 50 ML IV SCH (17:30)
[2019-11-30] MEDS: FENTANYL PF 100 MCG/2ML IVPush PRN ×2 (17:36→21:21)
[2019-12-01] MEDS: PROPOFOL 100 ML IV PRN ×4 (00:18→23:06)
[2019-12-01] MEDS: PIPERACILLIN/TAZO/PMX 3.375GM 50 ML IV SCH ×5 (00:19→23:06)
[2019-12-01] MEDS: LEVETIRACETAM 1,000 MG in SODIUM CHLORIDE 0.9% 100 ML IV SCH ×2 (01:54→13:33)
[2019-12-01] MEDS: FENTANYL PF 100 MCG/2ML IVPush PRN (01:57)
[2019-12-01 04:00] VITALS: BP 149/74
[2019-12-01 04:47] LABS: MEAN CORPUSCULAR HEMOGLOBIN 25.3 pg (27.5-34.5); MEAN CORPUSCULAR HGB CONC 30.8 g/dL (33.2-36.2); MEAN PLATELET VOLUME 8.6 fL (7.4-10.4); PLATELET COUNT 361 x10^3/uL (130-400); RED BLOOD COUNT 3.25 x10^6/uL (4.38-5.82); RED CELL DISTRIBUTION WIDTH 19.8 % (9.4-14.8)
[2019-12-01 04:52] LABS: ANION GAP 6 mmol/L (5-15); CALCIUM 8.4 mg/dL (8.5-10.1); CHLORIDE 102 mmol/L (98-107)
[2019-12-01 04:56] LABS: ALANINE AMINOTRANSFERASE 116 U/L (12-78); ALBUMIN 2.1 g/dL (3.4-5.0); ALKALINE PHOSPHATASE 106 U/L (45-117); BILIRUBIN, DIRECT 0.7 mg/dL (0.1-0.2); BILIRUBIN,INDIRECT 0.4 mg/dL (0.0-2.0); BILIRUBIN,TOTAL 1.1 mg/dL (0.2-1.0); CREATININE 0.56 mg/dL (0.7-1.3); TOTAL PROTEIN 7.1 g/dL (6.4-8.2); TRIGLYCERIDES 157 mg/dL (50-200)
[2019-12-01] MEDS: CARVEDILOL 6.25 MG TABLET PO SCH ×2 (05:24→17:12)
[2019-12-01 05:45] LABS: MD YES
[2019-12-01 05:46] LABS: EOS#(MANUAL) 0.15 x10^3/uL (0.0-0.4); EOS% (MANUAL) 1 % (1-7); LYMPH#(MANUAL) 1.36 x10^3/uL (1-3.4); LYMPHS% (MANUAL) 9 % (22-44)
[2019-12-01 05:47] LABS: ANISOCYTOSIS 1+; HYPOCHROMIA 1+; MONOS#(MANUAL) 1.36 x10^3/uL (0.3-2.7); MONOS% (MANUAL) 9 % (2-9); POLYCHROMASIA 1+; SEG#(MANUAL) 12.23 x10^3/uL (1.8-6.8); SEGS% (MANUAL) 81 % (42-75)
[2019-12-01 05:48] LABS: <PLATELET ESTIMATE> ADEQUATE; <PLT MORPHOLOGY> NORMAL PLT MORPH; OVALOCYTES 1+
[2019-12-01] MEDS: ACETAMINOPHEN 325 MG TABLET PO PRN ×2 (07:53→20:23)
[2019-12-01] MEDS: LISINOPRIL 10 MG TABLET PO SCH ×2 (09:21→20:23)
[2019-12-01] MEDS: LINEZOLID PMX 600MG/300ML 300 ML IV SCH ×2 (09:21→20:23)
[2019-12-01] MEDS: POLYETHYLENE GLYCOL 17 GM PACKET PO SCH (09:21)
[2019-12-01] MEDS: PANTOPRAZOLE 40 MG IV IVPush SCH (09:21)
[2019-12-02] MEDS: LEVETIRACETAM 1,000 MG in SODIUM CHLORIDE 0.9% 100 ML IV SCH ×2 (00:48→13:29)
[2019-12-02 04:00] VITALS: BP 114/73
[2019-12-02 04:47] LABS: MEAN CORPUSCULAR HEMOGLOBIN 25.7 pg (27.5-34.5); MEAN PLATELET VOLUME 8.8 fL (7.4-10.4); PLATELET COUNT 576 x10^3/uL (130-400); RED CELL DISTRIBUTION WIDTH 20.2 % (9.4-14.8)
[2019-12-02 04:52] LABS: ANION GAP 5 mmol/L (5-15); CALCIUM 8.6 mg/dL (8.5-10.1); CHLORIDE 105 mmol/L (98-107); CREATININE 0.63 mg/dL (0.7-1.3)
[2019-12-02 04:55] LABS: MD YES
[2019-12-02 04:59] LABS: MICROSCOPIC INDICATED
[2019-12-02 05:02] LABS: BAND#(MANUAL) 0.12 x10^3/uL; BANDS%(MANUAL) 1 % (0-7); LYMPH#(MANUAL) 0.94 x10^3/uL (1-3.4); LYMPHS% (MANUAL) 8 % (22-44); MONOS#(MANUAL) 1.42 x10^3/uL (0.3-2.7); MONOS% (MANUAL) 12 % (2-9); SEG#(MANUAL) 9.32 x10^3/uL (1.8-6.8); SEGS% (MANUAL) 79 % (42-75)
[2019-12-02 05:03] LABS: <PLATELET ESTIMATE> INCREASED; <PLT MORPHOLOGY> NORMAL PLT MORPH; ANISOCYTOSIS 1+; HYPOCHROMIA 1+; MICROCYTOSIS 1+; OVALOCYTES 1+; POLYCHROMASIA 1+
[2019-12-02 05:24] LABS: OSMOLALITY,URINE 402 mOsm/kg (500-850)
[2019-12-02] MEDS: PIPERACILLIN/TAZO/PMX 3.375GM 50 ML IV SCH ×4 (05:42→22:48)
[2019-12-02] MEDS: CARVEDILOL 6.25 MG TABLET PO SCH ×2 (05:42→16:39)
[2019-12-02] MEDS: PROPOFOL 100 ML IV PRN ×3 (05:42→22:48)
[2019-12-02] MEDS: ACETAMINOPHEN 325 MG TABLET PO PRN ×2 (05:43→17:08)
[2019-12-02] MEDS: POLYETHYLENE GLYCOL 17 GM PACKET PO SCH (07:38)
[2019-12-02] MEDS: LINEZOLID PMX 600MG/300ML 300 ML IV SCH ×2 (07:46→20:20)
[2019-12-02] MEDS: LISINOPRIL 10 MG TABLET PO SCH ×2 (07:47→20:20)
[2019-12-02] MEDS: PANTOPRAZOLE 40 MG IV IVPush SCH (07:50)
[2019-12-02] MEDS: OPIUM/BELLADONNA SUPP.RECT 16.2-30 MG PR PRN (22:48)
[2019-12-03] MEDS: LEVETIRACETAM 1,000 MG in SODIUM CHLORIDE 0.9% 100 ML IV SCH ×2 (01:19→13:02)
[2019-12-03] MEDS: ACETAMINOPHEN 325 MG TABLET PO PRN ×2 (02:18→18:09)
[2019-12-03] MEDS: PROPOFOL 100 ML IV PRN ×4 (03:08→21:40)
[2019-12-03 04:11] LABS: ANION GAP 7 mmol/L (5-15); CALCIUM 8.7 mg/dL (8.5-10.1); CHLORIDE 105 mmol/L (98-107); CREATININE 0.63 mg/dL (0.7-1.3)
[2019-12-03 04:21] LABS: MEAN CORPUSCULAR HEMOGLOBIN 25.1 pg (27.5-34.5); MEAN CORPUSCULAR HGB CONC 30.7 g/dL (33.2-36.2); MEAN PLATELET VOLUME 8.3 fL (7.4-10.4); PLATELET COUNT 761 x10^3/uL (130-400); RED BLOOD COUNT 3.34 x10^6/uL (4.38-5.82); RED CELL DISTRIBUTION WIDTH 20.3 % (9.4-14.8)
[2019-12-03 04:55] LABS: MD YES
[2019-12-03 04:58] LABS: ANISOCYTOSIS 1+; BAND#(MANUAL) 0.29 x10^3/uL; BANDS%(MANUAL) 2 % (0-7); EOS#(MANUAL) 0.14 x10^3/uL (0.0-0.4); EOS% (MANUAL) 1 % (1-7); LYMPH#(MANUAL) 1.72 x10^3/uL (1-3.4); LYMPHS% (MANUAL) 12 % (22-44); METAMYELOCYTES# (MANUAL) 0.14 x10^3/uL (0-0); METAMYELOCYTES% (MANUAL) 1 % (0-1); MONOS#(MANUAL) 1.14 x10^3/uL (0.3-2.7); MONOS% (MANUAL) 8 % (2-9); MYELOCYTES# (MANUAL) 0.14 x10^3/uL (0-0); MYELOCYTES% (MANUAL) 1 % (0-0); SEG#(MANUAL) 10.73 x10^3/uL (1.8-6.8); SEGS% (MANUAL) 75 % (42-75)
[2019-12-03 04:59] LABS: <PLATELET ESTIMATE> INCREASED; HYPOCHROMIA 1+; OVALOCYTES 1+; POLYCHROMASIA 1+
[2019-12-03 05:00] LABS: LARGE PLATELETS 1+
[2019-12-03] MEDS: PIPERACILLIN/TAZO/PMX 3.375GM 50 ML IV SCH ×5 (05:20→23:17)
[2019-12-03] MEDS: CARVEDILOL 6.25 MG TABLET PO SCH ×2 (05:20→18:09)
[2019-12-03] MEDS: POLYETHYLENE GLYCOL 17 GM PACKET PO SCH (09:00)
[2019-12-03] MEDS: PANTOPRAZOLE 40 MG IV IVPush SCH (09:08)
[2019-12-03] MEDS: LINEZOLID PMX 600MG/300ML 300 ML IV SCH ×2 (09:08→21:15)
[2019-12-03] MEDS: LISINOPRIL 10 MG TABLET PO SCH ×2 (09:08→21:00)
[2019-12-04] MEDS: LEVETIRACETAM 1,000 MG in SODIUM CHLORIDE 0.9% 100 ML IV SCH ×2 (01:31→13:48)
[2019-12-04 04:00] LABS: MEAN CORPUSCULAR HGB CONC 30.6 g/dL (33.2-36.2); MEAN PLATELET VOLUME 8.1 fL (7.4-10.4); PLATELET COUNT 823 x10^3/uL (130-400); RED BLOOD COUNT 3.42 x10^6/uL (4.38-5.82); RED CELL DISTRIBUTION WIDTH 20.5 % (9.4-14.8)
[2019-12-04 04:05] LABS: ANION GAP 8 mmol/L (5-15); CALCIUM 8.6 mg/dL (8.5-10.1); CHLORIDE 104 mmol/L (98-107); TRIGLYCERIDES 137 mg/dL (50-200)
[2019-12-04 04:13] LABS: MD YES
[2019-12-04 04:15] LABS: ANISOCYTOSIS 1+; EOS#(MANUAL) 0.43 x10^3/uL (0.0-0.4); EOS% (MANUAL) 3 % (1-7); HYPOCHROMIA 1+; LYMPH#(MANUAL) 1.14 x10^3/uL (1-3.4); LYMPHS% (MANUAL) 8 % (22-44); MONOS#(MANUAL) 0.99 x10^3/uL (0.3-2.7); MONOS% (MANUAL) 7 % (2-9); MYELOCYTES# (MANUAL) 0.14 x10^3/uL (0-0); MYELOCYTES% (MANUAL) 1 % (0-0); OVALOCYTES 1+; POLYCHROMASIA 1+; SEGS% (MANUAL) 81 % (42-75)
[2019-12-04 04:16] LABS: <PLATELET ESTIMATE> INCREASED; LARGE PLATELETS 1+
[2019-12-04] MEDS: PROPOFOL 100 ML IV PRN (05:22)
[2019-12-04] MEDS: PIPERACILLIN/TAZO/PMX 3.375GM 50 ML IV SCH ×4 (05:25→22:43)
[2019-12-04] MEDS: CARVEDILOL 6.25 MG TABLET PO SCH ×2 (05:40→17:13)
[2019-12-04] MEDS: LINEZOLID PMX 600MG/300ML 300 ML IV SCH ×2 (08:09→20:12)
[2019-12-04] MEDS: POLYETHYLENE GLYCOL 17 GM PACKET PO SCH (08:23)
[2019-12-04] MEDS: LISINOPRIL 10 MG TABLET PO SCH ×2 (09:22→21:17)
[2019-12-04] MEDS: PANTOPRAZOLE 40 MG IV IVPush SCH (09:22)
[2019-12-04] MEDS: ACETAMINOPHEN 325 MG TABLET PO PRN (20:12)
[2019-12-05] MEDS: LEVETIRACETAM 1,000 MG in SODIUM CHLORIDE 0.9% 100 ML IV SCH ×2 (01:26→12:32)
[2019-12-05 03:43] LABS: BASOPHILS # (AUTO) 0.09 x10^3/uL (0-0.1); BASOPHILS % (AUTO) 1 % (0-1); EOSINOPHILS # (AUTO) 0.16 x10^3/uL (0-0.4); EOSINOPHILS % (AUTO) 1 % (1-7); LYMPHOCYTES # (AUTO) 1.48 x10^3/uL (1-3.4); LYMPHOCYTES % (AUTO) 10 % (22-44); MD NO; MEAN CORPUSCULAR HEMOGLOBIN 25.3 pg (27.5-34.5); MEAN CORPUSCULAR HGB CONC 31.3 g/dL (33.2-36.2); MEAN PLATELET VOLUME 8.1 fL (7.4-10.4); MONOCYTES # (AUTO) 1.32 x10^3/uL (0.2-0.8); MONOCYTES % (AUTO) 9 % (2-9); NEUTROPHILS # (AUTO) 12.02 x10^3/uL (1.8-6.8); NEUTROPHILS % (AUTO) 80 % (42-75); PLATELET COUNT 919 x10^3/uL (130-400); RED BLOOD COUNT 3.56 x10^6/uL (4.38-5.82); RED CELL DISTRIBUTION WIDTH 20.3 % (9.4-14.8)
[2019-12-05] MEDS: ACETAMINOPHEN 325 MG TABLET PO PRN ×4 (03:51→19:37)
[2019-12-05 03:54] LABS: ANION GAP 7 mmol/L (5-15); CALCIUM 8.5 mg/dL (8.5-10.1); CHLORIDE 100 mmol/L (98-107); CREATININE 0.68 mg/dL (0.7-1.3)
[2019-12-05] MEDS: PIPERACILLIN/TAZO/PMX 3.375GM 50 ML IV SCH ×4 (05:10→22:52)
[2019-12-05] MEDS: CARVEDILOL 6.25 MG TABLET PO SCH ×2 (06:01→19:00)
[2019-12-05] MEDS: LINEZOLID PMX 600MG/300ML 300 ML IV SCH ×2 (08:54→20:27)
[2019-12-05] MEDS: POLYETHYLENE GLYCOL 17 GM PACKET PO SCH (08:54)
[2019-12-05] MEDS: PANTOPRAZOLE 40 MG IV IVPush SCH (08:55)
[2019-12-05] MEDS: LISINOPRIL 10 MG TABLET PO SCH ×2 (08:55→20:46)
[2019-12-05] MEDS: OPIUM/BELLADONNA SUPP.RECT 16.2-30 MG PR PRN (16:48)
[2019-12-06] MEDS: ACETAMINOPHEN 325 MG TABLET PO PRN ×3 (02:28→16:51)
[2019-12-06] MEDS: LEVETIRACETAM 1,000 MG in SODIUM CHLORIDE 0.9% 100 ML IV SCH ×2 (02:28→14:27)
[2019-12-06 04:21] LABS: MEAN CORPUSCULAR HEMOGLOBIN 25.1 pg (27.5-34.5); MEAN CORPUSCULAR HGB CONC 31.1 g/dL (33.2-36.2); RED BLOOD COUNT 3.43 x10^6/uL (4.38-5.82); RED CELL DISTRIBUTION WIDTH 20.2 % (9.4-14.8)
[2019-12-06 04:22] LABS: PLATELET COUNT 1044 x10^3/uL (130-400)
[2019-12-06 04:28] LABS: ANION GAP 8 mmol/L (5-15); CHLORIDE 100 mmol/L (98-107); CREATININE 0.73 mg/dL (0.7-1.3)
[2019-12-06 04:46] LABS: BASOPHILS # (AUTO) 0.07 x10^3/uL (0-0.1); BASOPHILS % (AUTO) 1 % (0-1); EOSINOPHILS # (AUTO) 0.18 x10^3/uL (0-0.4); EOSINOPHILS % (AUTO) 1 % (1-7); LYMPHOCYTES # (AUTO) 1.25 x10^3/uL (1-3.4); LYMPHOCYTES % (AUTO) 9 % (22-44); MD SCAN; MONOCYTES # (AUTO) 1.32 x10^3/uL (0.2-0.8); MONOCYTES % (AUTO) 10 % (2-9); NEUTROPHILS # (AUTO) 10.37 x10^3/uL (1.8-6.8); NEUTROPHILS % (AUTO) 79 % (42-75)
[2019-12-06] MEDS: PIPERACILLIN/TAZO/PMX 3.375GM 50 ML IV SCH ×4 (05:05→23:10)
[2019-12-06] MEDS: CARVEDILOL 6.25 MG TABLET PO SCH ×2 (05:52→16:50)
[2019-12-06] MEDS: POLYETHYLENE GLYCOL 17 GM PACKET PO SCH (08:50)
[2019-12-06] MEDS: LINEZOLID PMX 600MG/300ML 300 ML IV SCH (08:55)
[2019-12-06] MEDS: PANTOPRAZOLE 40 MG IV IVPush SCH (08:55)
[2019-12-06] MEDS: LISINOPRIL 10 MG TABLET PO SCH ×2 (08:55→21:23)
[2019-12-06] MEDS: OPIUM/BELLADONNA SUPP.RECT 16.2-30 MG PR PRN (15:59)
[2019-12-07] MEDS: LEVETIRACETAM 1,000 MG in SODIUM CHLORIDE 0.9% 100 ML IV SCH ×2 (02:36→15:50)
[2019-12-07 04:43] LABS: ANION GAP 7 mmol/L (5-15); CHLORIDE 101 mmol/L (98-107); TRIGLYCERIDES 136 mg/dL (50-200)
[2019-12-07] MEDS: PIPERACILLIN/TAZO/PMX 3.375GM 50 ML IV SCH (05:30)
[2019-12-07 07:37] LABS: BASOPHILS # (AUTO) 0.07 x10^3/uL (0-0.1); BASOPHILS % (AUTO) 1 % (0-1); EOSINOPHILS # (AUTO) 0.19 x10^3/uL (0-0.4); EOSINOPHILS % (AUTO) 1 % (1-7); LYMPHOCYTES # (AUTO) 1.72 x10^3/uL (1-3.4); LYMPHOCYTES % (AUTO) 11 % (22-44); MD SCAN; MEAN CORPUSCULAR HEMOGLOBIN 24.7 pg (27.5-34.5); MEAN CORPUSCULAR HGB CONC 30.5 g/dL (33.2-36.2); MEAN PLATELET VOLUME 7.6 fL (7.4-10.4); MONOCYTES # (AUTO) 2.84 x10^3/uL (0.2-0.8); MONOCYTES % (AUTO) 19 % (2-9); NEUTROPHILS # (AUTO) 10.48 x10^3/uL (1.8-6.8); NEUTROPHILS % (AUTO) 69 % (42-75); PLATELET COUNT 987 x10^3/uL (130-400); RED BLOOD COUNT 4.22 x10^6/uL (4.38-5.82); RED CELL DISTRIBUTION WIDTH 20.1 % (9.4-14.8)
[2019-12-07] MEDS: POLYETHYLENE GLYCOL 17 GM PACKET PO SCH (07:55)
[2019-12-07] MEDS: LISINOPRIL 10 MG TABLET PO SCH ×2 (07:55→20:49)
[2019-12-07] MEDS: CARVEDILOL 6.25 MG TABLET PO SCH ×2 (07:56→18:10)
[2019-12-07] MEDS: PANTOPRAZOLE 40 MG IV IVPush SCH (09:59)
[2019-12-07 12:36] VITALS: BP 95/60
[2019-12-07 16:37] VITALS: BP 116/78
[2019-12-07 17:59] VITALS: BP 97/62
[2019-12-07 18:09] VITALS: BP 110/65
[2019-12-07 19:00] VITALS: BP 109/72
[2019-12-08 00:30] VITALS: BP 103/63
[2019-12-08] MEDS: ACETAMINOPHEN 325 MG TABLET PO PRN ×2 (02:20→16:45)
[2019-12-08] MEDS: LEVETIRACETAM 1,000 MG in SODIUM CHLORIDE 0.9% 100 ML IV SCH ×2 (03:25→14:31)
[2019-12-08] MEDS: OXYcodone 5 MG/5 ML ORAL.SOL UDC PO PRN ×2 (03:26→20:15)
[2019-12-08] MEDS: CARVEDILOL 6.25 MG TABLET PO SCH ×2 (05:45→16:44)
[2019-12-08 06:30] LABS: ANION GAP 8 mmol/L (5-15); CALCIUM 9.4 mg/dL (8.5-10.1); CHLORIDE 99 mmol/L (98-107)
[2019-12-08 06:32] LABS: CREATININE 0.77 mg/dL (0.7-1.3)
[2019-12-08 06:38] LABS: BASOPHILS # (AUTO) 0.06 x10^3/uL (0-0.1); BASOPHILS % (AUTO) 1 % (0-1); EOSINOPHILS # (AUTO) 0.05 x10^3/uL (0-0.4); EOSINOPHILS % (AUTO) 1 % (1-7); LYMPHOCYTES # (AUTO) 1.62 x10^3/uL (1-3.4); LYMPHOCYTES % (AUTO) 15 % (22-44); MD MORPH REVIEW ONLY; MEAN CORPUSCULAR HEMOGLOBIN 24.9 pg (27.5-34.5); MEAN CORPUSCULAR HGB CONC 31.1 g/dL (33.2-36.2); MEAN PLATELET VOLUME 7.9 fL (7.4-10.4); MONOCYTES # (AUTO) 1.33 x10^3/uL (0.2-0.8); MONOCYTES % (AUTO) 12 % (2-9); NEUTROPHILS # (AUTO) 8.11 x10^3/uL (1.8-6.8); NEUTROPHILS % (AUTO) 73 % (42-75); RED BLOOD COUNT 3.66 x10^6/uL (4.38-5.82); RED CELL DISTRIBUTION WIDTH 19.7 % (9.4-14.8)
[2019-12-08 06:39] LABS: ANISOCYTOSIS 1+; MICROCYTOSIS 1+
[2019-12-08 06:40] LABS: <PLATELET ESTIMATE> INCREASED; <PLT MORPHOLOGY> NORMAL PLT MORPH; OVALOCYTES 1+; POLYCHROMASIA 1+
[2019-12-08 06:41] LABS: PLATELET COUNT 1116 x10^3/uL (130-400)
[2019-12-08 06:45] VITALS: BP 98/62
[2019-12-08] MEDS: LISINOPRIL 10 MG TABLET PO SCH ×2 (08:06→20:14)
[2019-12-08 14:17] VITALS: BP 119/77
[2019-12-08] MEDS: THIAMINE 100MG TABLET PO SCH (14:31)
[2019-12-08] MEDS: POLYETHYLENE GLYCOL 17 GM PACKET PO SCH (14:31)
[2019-12-08 19:35] VITALS: BP 111/63
[2019-12-09 01:27] VITALS: BP 116/69
[2019-12-09] MEDS: OXYcodone 5 MG/5 ML ORAL.SOL UDC PO PRN (02:21)
[2019-12-09] MEDS: LEVETIRACETAM 1,000 MG in SODIUM CHLORIDE 0.9% 100 ML IV SCH (02:22)
[2019-12-09 04:12] LABS: ANION GAP 6 mmol/L (5-15); CALCIUM 9.4 mg/dL (8.5-10.1); CHLORIDE 101 mmol/L (98-107)
[2019-12-09 04:13] LABS: CREATININE 0.75 mg/dL (0.7-1.3)
[2019-12-09 04:16] LABS: MEAN CORPUSCULAR HEMOGLOBIN 24.6 pg (27.5-34.5); MEAN CORPUSCULAR HGB CONC 30.4 g/dL (33.2-36.2); MEAN PLATELET VOLUME 7.5 fL (7.4-10.4); RED BLOOD COUNT 3.57 x10^6/uL (4.38-5.82); RED CELL DISTRIBUTION WIDTH 20.2 % (9.4-14.8)
[2019-12-09 04:22] LABS: PLATELET COUNT 1017 x10^3/uL (130-400)
[2019-12-09 04:42] LABS: BASOPHILS # (AUTO) 0.06 x10^3/uL (0-0.1); BASOPHILS % (AUTO) 1 % (0-1); EOSINOPHILS # (AUTO) 0.14 x10^3/uL (0-0.4); EOSINOPHILS % (AUTO) 1 % (1-7); LYMPHOCYTES # (AUTO) 1.49 x10^3/uL (1-3.4); LYMPHOCYTES % (AUTO) 12 % (22-44); MD MORPH REVIEW ONLY; MONOCYTES # (AUTO) 0.97 x10^3/uL (0.2-0.8); MONOCYTES % (AUTO) 8 % (2-9); NEUTROPHILS # (AUTO) 9.33 x10^3/uL (1.8-6.8); NEUTROPHILS % (AUTO) 78 % (42-75)
[2019-12-09 04:43] LABS: ANISOCYTOSIS 1+
[2019-12-09 04:44] LABS: <PLATELET ESTIMATE> INCREASED; <PLT MORPHOLOGY> NORMAL PLT MORPH; MICROCYTOSIS 1+; OVALOCYTES 1+; POLYCHROMASIA 1+
[2019-12-09] MEDS: CARVEDILOL 6.25 MG TABLET PO SCH ×2 (05:52→17:57)
[2019-12-09 05:58] VITALS: BP 111/71
[2019-12-09] MEDS: LACTULOSE 20 GM/30 ML UDC PO PRN (08:49)
[2019-12-09] MEDS: POLYETHYLENE GLYCOL 17 GM PACKET PO SCH (08:49)
[2019-12-09] MEDS: THIAMINE 100MG TABLET PO SCH (08:49)
[2019-12-09] MEDS: LISINOPRIL 10 MG TABLET PO SCH ×2 (08:49→20:40)
[2019-12-09 08:56] VITALS: BP 113/74
[2019-12-09 13:52] VITALS: BP 112/66
[2019-12-09] MEDS: ACETAMINOPHEN 650 MG/20.3 ML UDC NG PRN (14:21)
[2019-12-09 19:26] VITALS: BP 118/74
[2019-12-09] MEDS: LEVETIRACETAM 500 MG TABLET NG SCH (20:40)
[2019-12-10 02:00] VITALS: BP 112/67
[2019-12-10 04:27] LABS: BASOPHILS # (AUTO) 0.04 x10^3/uL (0-0.1); BASOPHILS % (AUTO) 0 % (0-1); EOSINOPHILS # (AUTO) 0.11 x10^3/uL (0-0.4); EOSINOPHILS % (AUTO) 1 % (1-7); LYMPHOCYTES # (AUTO) 1.48 x10^3/uL (1-3.4); LYMPHOCYTES % (AUTO) 10 % (22-44); MD NO; MEAN CORPUSCULAR HEMOGLOBIN 24.7 pg (27.5-34.5); MEAN CORPUSCULAR HGB CONC 30.9 g/dL (33.2-36.2); MEAN PLATELET VOLUME 7.9 fL (7.4-10.4); MONOCYTES # (AUTO) 1.18 x10^3/uL (0.2-0.8); MONOCYTES % (AUTO) 8 % (2-9); NEUTROPHILS % (AUTO) 81 % (42-75); PLATELET COUNT 968 x10^3/uL (130-400); RED BLOOD COUNT 3.67 x10^6/uL (4.38-5.82); RED CELL DISTRIBUTION WIDTH 19.7 % (9.4-14.8)
[2019-12-10 04:28] LABS: ALBUMIN 2.4 g/dL (3.4-5.0); ANION GAP 10 mmol/L (5-15); CALCIUM 9.1 mg/dL (8.5-10.1); CHLORIDE 100 mmol/L (98-107)
[2019-12-10 04:35] LABS: HCT (SEDRATE) 29.3 % (39.2-51.8)
[2019-12-10 04:40] LABS: ALANINE AMINOTRANSFERASE 64 U/L (12-78); ALKALINE PHOSPHATASE 218 U/L (45-117); CREATININE 0.79 mg/dL (0.7-1.3); FREE T4 (FREE THYROXINE) 1.15 ng/dL (0.76-1.46); TOTAL PROTEIN 8.6 g/dL (6.4-8.2)
[2019-12-10] MEDS: BISACODYL 10 MG SUPP PR PRN (05:20)
[2019-12-10] MEDS: CARVEDILOL 6.25 MG TABLET PO SCH ×2 (05:21→17:47)
[2019-12-10 08:06] VITALS: BP 104/72
[2019-12-10] MEDS: POLYETHYLENE GLYCOL 17 GM PACKET PO SCH (08:44)
[2019-12-10] MEDS: LEVETIRACETAM 500 MG TABLET NG SCH ×2 (08:45→21:12)
[2019-12-10] MEDS: LISINOPRIL 10 MG TABLET PO SCH ×2 (08:45→21:12)
[2019-12-10] MEDS: THIAMINE 100MG TABLET PO SCH (08:45)
[2019-12-10 11:15] LABS: MICROSCOPIC INDICATED
[2019-12-10 13:07] VITALS: BP 120/74
[2019-12-10] MEDS: ACETAMINOPHEN 650 MG/20.3 ML UDC NG PRN (18:06)
[2019-12-10 19:52] VITALS: BP 127/78
[2019-12-10 20:04] LABS: TROPONIN I < 0.015 ng/mL (0.000-0.045)
[2019-12-11] VITALS (8 sets, daily range): BP systolic 91–129; BP diastolic 61–72
[2019-12-11 01:30] LABS: TROPONIN I < 0.015 ng/mL (0.000-0.045)
[2019-12-11 04:15] LABS: BASOPHILS # (AUTO) 0.04 x10^3/uL (0-0.1); BASOPHILS % (AUTO) 0 % (0-1); EOSINOPHILS # (AUTO) 0.08 x10^3/uL (0-0.4); EOSINOPHILS % (AUTO) 1 % (1-7); LYMPHOCYTES # (AUTO) 1.36 x10^3/uL (1-3.4); LYMPHOCYTES % (AUTO) 10 % (22-44); MD NO; MEAN CORPUSCULAR HEMOGLOBIN 24.6 pg (27.5-34.5); MEAN CORPUSCULAR HGB CONC 30.9 g/dL (33.2-36.2); MONOCYTES % (AUTO) 9 % (2-9); NEUTROPHILS % (AUTO) 81 % (42-75); PLATELET COUNT 904 x10^3/uL (130-400); RED BLOOD COUNT 3.69 x10^6/uL (4.38-5.82); RED CELL DISTRIBUTION WIDTH 20.1 % (9.4-14.8)
[2019-12-11 04:22] LABS: CHLORIDE 103 mmol/L (98-107)
[2019-12-11 04:31] LABS: ANION GAP 9 mmol/L (5-15); CALCIUM 9.9 mg/dL (8.5-10.1); CREATININE 0.93 mg/dL (0.7-1.3); TROPONIN I < 0.015 ng/mL (0.000-0.045)
[2019-12-11] MEDS: CARVEDILOL 6.25 MG TABLET PO SCH ×2 (06:23→17:57)
[2019-12-11] MEDS: POLYETHYLENE GLYCOL 17 GM PACKET PO SCH (07:59)
[2019-12-11] MEDS: LEVETIRACETAM 500 MG TABLET NG SCH ×2 (09:26→21:13)
[2019-12-11] MEDS: THIAMINE 100MG TABLET PO SCH (09:26)
[2019-12-11] MEDS: LISINOPRIL 10 MG TABLET PO SCH ×2 (09:26→21:00)
[2019-12-11] MEDS: OXYcodone 5 MG/5 ML ORAL.SOL UDC PO PRN (17:56)
[2019-12-11] MEDS: ACETAMINOPHEN 650 MG/20.3 ML UDC NG PRN (21:13)
[2019-12-12 01:48] VITALS: BP 113/68
[2019-12-12 05:11] LABS: BASOPHILS # (AUTO) 0.03 x10^3/uL (0-0.1); BASOPHILS % (AUTO) 0 % (0-1); EOSINOPHILS # (AUTO) 0.16 x10^3/uL (0-0.4); EOSINOPHILS % (AUTO) 1 % (1-7); LYMPHOCYTES # (AUTO) 1.43 x10^3/uL (1-3.4); LYMPHOCYTES % (AUTO) 12 % (22-44); MD NO; MEAN CORPUSCULAR HEMOGLOBIN 24.5 pg (27.5-34.5); MONOCYTES # (AUTO) 0.93 x10^3/uL (0.2-0.8); MONOCYTES % (AUTO) 8 % (2-9); NEUTROPHILS # (AUTO) 9.04 x10^3/uL (1.8-6.8); NEUTROPHILS % (AUTO) 78 % (42-75); PLATELET COUNT 761 x10^3/uL (130-400); RED CELL DISTRIBUTION WIDTH 20.4 % (9.4-14.8)
[2019-12-12 05:20] LABS: ANION GAP 8 mmol/L (5-15); CALCIUM 9.4 mg/dL (8.5-10.1); CHLORIDE 104 mmol/L (98-107); CREATININE 0.97 mg/dL (0.7-1.3)
[2019-12-12] MEDS: CARVEDILOL 6.25 MG TABLET PO SCH ×2 (05:21→18:43)
[2019-12-12 07:33] VITALS: BP 98/63
[2019-12-12 10:27] VITALS: BP 102/63
[2019-12-12] MEDS: THIAMINE 100MG TABLET PO SCH (10:31)
[2019-12-12] MEDS: ACETAMINOPHEN 650 MG/20.3 ML UDC NG PRN (10:31)
[2019-12-12] MEDS: POLYETHYLENE GLYCOL 17 GM PACKET PO SCH (10:31)
[2019-12-12] MEDS: LEVETIRACETAM 500 MG TABLET NG SCH ×2 (10:32→20:22)
[2019-12-12] MEDS: LISINOPRIL 10 MG TABLET PO SCH ×2 (10:32→20:22)
[2019-12-12 16:32] VITALS: BP 106/69
[2019-12-12 18:43] VITALS: BP 100/66
[2019-12-12 19:16] VITALS: BP 114/66
[2019-12-12] MEDS: OXYcodone 5 MG/5 ML ORAL.SOL UDC PO PRN (20:39)
[2019-12-13] MEDS: OXYcodone 5 MG/5 ML ORAL.SOL UDC PO PRN (00:57)
[2019-12-13 01:14] VITALS: BP 103/63
[2019-12-13 05:23] LABS: BASOPHILS # (AUTO) 0.05 x10^3/uL (0-0.1); BASOPHILS % (AUTO) 0 % (0-1); EOSINOPHILS # (AUTO) 0.29 x10^3/uL (0-0.4); EOSINOPHILS % (AUTO) 2 % (1-7); LYMPHOCYTES % (AUTO) 14 % (22-44); MD NO; MEAN CORPUSCULAR HEMOGLOBIN 24.7 pg (27.5-34.5); MEAN CORPUSCULAR HGB CONC 31.1 g/dL (33.2-36.2); MEAN PLATELET VOLUME 8.4 fL (7.4-10.4); MONOCYTES # (AUTO) 1.02 x10^3/uL (0.2-0.8); MONOCYTES % (AUTO) 8 % (2-9); NEUTROPHILS # (AUTO) 9.12 x10^3/uL (1.8-6.8); NEUTROPHILS % (AUTO) 75 % (42-75); PLATELET COUNT 693 x10^3/uL (130-400); RED BLOOD COUNT 3.64 x10^6/uL (4.38-5.82); RED CELL DISTRIBUTION WIDTH 19.8 % (9.4-14.8)
[2019-12-13 05:32] LABS: CALCIUM 10.5 mg/dL (8.5-10.1); CHLORIDE 107 mmol/L (98-107)
[2019-12-13 05:36] LABS: ANION GAP 8 mmol/L (5-15); CREATININE 1.06 mg/dL (0.7-1.3)
[2019-12-13] MEDS: CARVEDILOL 6.25 MG TABLET PO SCH ×2 (05:38→17:45)
[2019-12-13 07:33] VITALS: BP 100/68
[2019-12-13] MEDS: LEVETIRACETAM 500 MG TABLET NG SCH ×2 (08:20→20:30)
[2019-12-13] MEDS: THIAMINE 100MG TABLET PO SCH (08:20)
[2019-12-13] MEDS: LISINOPRIL 10 MG TABLET PO SCH ×2 (08:20→19:50)
[2019-12-13] MEDS: POLYETHYLENE GLYCOL 17 GM PACKET PO SCH (09:00)
[2019-12-13 12:25] VITALS: BP 109/65
[2019-12-13 17:37] VITALS: BP 97/65
[2019-12-13 17:38] VITALS: BP 110/70
[2019-12-13 19:42] VITALS: BP 94/68
[2019-12-14 00:25] VITALS: BP 114/61
[2019-12-14] MEDS: CARVEDILOL 6.25 MG TABLET PO SCH ×2 (04:56→18:32)
[2019-12-14 05:56] LABS: BASOPHILS # (AUTO) 0.03 x10^3/uL (0-0.1); BASOPHILS % (AUTO) 0 % (0-1); EOSINOPHILS # (AUTO) 0.26 x10^3/uL (0-0.4); EOSINOPHILS % (AUTO) 3 % (1-7); LYMPHOCYTES # (AUTO) 1.95 x10^3/uL (1-3.4); LYMPHOCYTES % (AUTO) 19 % (22-44); MD NO; MEAN CORPUSCULAR HEMOGLOBIN 24.5 pg (27.5-34.5); MEAN PLATELET VOLUME 8.4 fL (7.4-10.4); MONOCYTES # (AUTO) 0.55 x10^3/uL (0.2-0.8); MONOCYTES % (AUTO) 5 % (2-9); NEUTROPHILS # (AUTO) 7.44 x10^3/uL (1.8-6.8); NEUTROPHILS % (AUTO) 73 % (42-75); PLATELET COUNT 619 x10^3/uL (130-400); RED BLOOD COUNT 3.85 x10^6/uL (4.38-5.82); RED CELL DISTRIBUTION WIDTH 20.4 % (9.4-14.8)
[2019-12-14 06:06] LABS: ANION GAP 9 mmol/L (5-15); CALCIUM 9.5 mg/dL (8.5-10.1); CHLORIDE 108 mmol/L (98-107)
[2019-12-14 07:42] VITALS: BP 100/66
[2019-12-14] MEDS: POLYETHYLENE GLYCOL 17 GM PACKET PO SCH (09:46)
[2019-12-14] MEDS: THIAMINE 100MG TABLET PO SCH (09:47)
[2019-12-14] MEDS: LEVETIRACETAM 500 MG TABLET NG SCH ×2 (09:48→21:48)
[2019-12-14] MEDS: LISINOPRIL 10 MG TABLET PO SCH ×2 (10:27→21:49)
[2019-12-14 14:00] VITALS: BP 112/56
[2019-12-14 18:30] VITALS: BP 113/77
[2019-12-14 19:04] VITALS: BP 106/79
[2019-12-15 00:28] VITALS: BP 107/61
[2019-12-15] MEDS: CARVEDILOL 6.25 MG TABLET PO SCH ×2 (06:02→20:30)
[2019-12-15] MEDS: OXYcodone 5 MG/5 ML ORAL.SOL UDC PO PRN (06:03)
[2019-12-15] MEDS: POLYETHYLENE GLYCOL 17 GM PACKET PO SCH (07:21)
[2019-12-15 07:49] VITALS: BP 99/67
[2019-12-15] MEDS: LISINOPRIL 10 MG TABLET PO SCH ×2 (09:00→20:30)
[2019-12-15] MEDS: THIAMINE 100MG TABLET PO SCH (10:12)
[2019-12-15] MEDS: LEVETIRACETAM 500 MG TABLET NG SCH ×2 (10:12→20:30)
[2019-12-15 12:50] VITALS: BP 94/70
--- NOTE | 2019-12-15 13:04 | NUR ---
REC: SANDRA/YASIR 1:1 ALL MEALS CRUSH MEDS Addendum: 12/15/19 at [address] Amended: Links added.
[2019-12-15 19:09] VITALS: BP 107/70
[2019-12-16 00:25] VITALS: BP 98/66
[2019-12-16] MEDS: CARVEDILOL 6.25 MG TABLET PO SCH ×2 (05:54→17:24)
[2019-12-16 07:14] VITALS: BP 107/65
[2019-12-16] MEDS: THIAMINE 100MG TABLET PO SCH (09:16)
[2019-12-16] MEDS: LISINOPRIL 10 MG TABLET PO SCH ×2 (09:16→21:39)
[2019-12-16] MEDS: LEVETIRACETAM 500 MG TABLET NG SCH ×2 (09:17→21:40)
[2019-12-16] MEDS: POLYETHYLENE GLYCOL 17 GM PACKET PO SCH (09:17)
[2019-12-16 13:50] VITALS: BP 111/78
[2019-12-16 19:38] VITALS: BP 94/57
[2019-12-17] VITALS: BP 99/65
[2019-12-17] MEDS: CARVEDILOL 6.25 MG TABLET PO SCH (05:28)
[2019-12-17 07:13] VITALS: BP 104/68
[2019-12-17 09:38] VITALS: BP 99/67
[2019-12-17] MEDS: LEVETIRACETAM 500 MG TABLET NG SCH (09:44)
[2019-12-17] MEDS: THIAMINE 100MG TABLET PO SCH (09:45)
[2019-12-17] MEDS: POLYETHYLENE GLYCOL 17 GM PACKET PO SCH (09:46)
[2019-12-17] MEDS ORDERED: CARV6.2512 PO (11:28)
[2019-12-17] MEDS ORDERED: LEVE500T53 NG (11:28)
== END 2019-12-17 15:30 | DRG 25 ==
LOC: ED 16:09 → EDIP 18:09 → CCU 23:04 → 4WST 12-07 12:22
PROVIDERS: ADMIT Internal Medicine; ATTEND Hospitalist
PROC: 5A1955Z Respiratory Ventilation, Greater than 96 Consecutive Hours (ICD-10-PCS; 2019-11-22)
PROC: 0BH18EZ Insertion of Endotracheal Airway into Trachea, Via Natural or Artificial Opening Endoscopic (ICD-10-PCS; 2019-11-22)
PROC: 30233K1 Transfusion of Nonautologous Frozen Plasma into Peripheral Vein, Percutaneous Approach (ICD-10-PCS; 2019-11-22)
PROC: 30233N1 Transfusion of Nonautologous Red Blood Cells into Peripheral Vein, Percutaneous Approach (ICD-10-PCS; 2019-11-22)
PROC: 30233R1 Transfusion of Nonautologous Platelets into Peripheral Vein, Percutaneous Approach (ICD-10-PCS; 2019-11-22)
PROC: 00C40ZZ Extirpation of Matter from Intracranial Subdural Space, Open Approach (ICD-10-PCS; principal; 2019-11-22 19:00)
PROC: 0T9B70Z Drainage of Bladder with Drainage Device, Via Natural or Artificial Opening (ICD-10-PCS; 2019-11-30)
PROC: 0T9B70Z Drainage of Bladder with Drainage Device, Via Natural or Artificial Opening (ICD-10-PCS; 2019-12-02)
DX: S06.5X9A Traumatic subdural hemorrhage with loss of consciousness of unspecified duration, initial encounter (principal); J96.01 Acute respiratory failure with hypoxia; N17.0 Acute kidney failure with tubular necrosis; G92 Toxic encephalopathy; M62.82 Rhabdomyolysis; F10.239 Alcohol dependence with withdrawal, unspecified; E87.1 Hypo-osmolality and hyponatremia; Z99.11 Dependence on respirator [ventilator] status; J98.11 Atelectasis; G97.82 Other postprocedural complications and disorders of nervous system; R56.9 Unspecified convulsions; S06.6X9A Traumatic subarachnoid hemorrhage with loss of consciousness of unspecified duration, initial encounter; D50.9 Iron deficiency anemia, unspecified; K57.90 Diverticulosis of intestine, part unspecified, without perforation or abscess without bleeding; F32.9 Major depressive disorder, single episode, unspecified; K70.10 Alcoholic hepatitis without ascites; D69.59 Other secondary thrombocytopenia; E78.1 Pure hyperglyceridemia; K76.0 Fatty (change of) liver, not elsewhere classified; R73.9 Hyperglycemia, unspecified; R13.10 Dysphagia, unspecified; R82.71 Bacteriuria; D63.8 Anemia in other chronic diseases classified elsewhere; D72.828 Other elevated white blood cell count; B96.20 Unspecified Escherichia coli [E. coli] as the cause of diseases classified elsewhere; B96.89 Other specified bacterial agents as the cause of diseases classified elsewhere; M48.061 Spinal stenosis, lumbar region without neurogenic claudication; R47.02 Dysphasia; R50.2 Drug induced fever; H11.32 Conjunctival hemorrhage, left eye; F10.229 Alcohol dependence with intoxication, unspecified; K80.20 Calculus of gallbladder without cholecystitis without obstruction; B95.3 Streptococcus pneumoniae as the cause of diseases classified elsewhere; W03.XXXA Other fall on same level due to collision with another person, initial encounter; M19.012 Primary osteoarthritis, left shoulder; Z66 Do not resuscitate; Z87.891 Personal history of nicotine dependence; Y93.89 Activity, other specified; Y92.89 Other specified places as the place of occurrence of the external cause; Y99.0 Civilian activity done for income or pay; Z03.818 Encounter for observation for suspected exposure to other biological agents ruled out; Y83.8 Other surgical procedures as the cause of abnormal reaction of the patient, or of later complication, without mention of misadventure at the time of the procedure; Y92.239 Unspecified place in hospital as the place of occurrence of the external cause
CPT/HCPCS: 36415; 36430; 36600; 70450; 70496; 71045; 71260; 72125; 72128; 72131; 74177; 74230; 80048; 80053; 80076; 80307; 81001; 82330; 82550; 82728; 82803; 82947; 82962; 83540; 83550; 83605; 83690; 83735; 83930; 83935; 84100; 84132; 84145; 84295; 84439; 84443; 84450; 84460; 84466; 84478; 84484; 84588; 85014; 85025; 85610; 85651; 85730; 86140; 86850; 86900; 86923; 87040; 87070; 87077; 87081; 87086; 87181; 87184; 87186; 87205; 87635; 93005; 94002; 94003; 99291; C1713; G0378; J0690; J1953; J2020; J2250; J2405; J2543; J2704; J3010; J3360; J3411; J3475; J3480; Q9967; 92523-GN; C9113; J0330; J0360; J2060; J2370; J7030; J7040; J7050; P9016; P9017; P9035